=== PATIENT | female | born 1990 | race Asian ===

== ENCOUNTER 2022-12-08 05:16 | Inpatient (IN) | payer OTHER ==
[~2022-12-08 05:16] MED LIST: ceFAZolin 2 GM in Sodium Chloride 0.9% 50 ML IV ONE
[2022-12-08] MEDS: Lactated Ringers 1,000 ML IV SCH ×2 (05:40→07:13)
[2022-12-08] MEDS ORDERED: Metoclopramide 10 MG/2 ML SDV IVPUSH ONE ×2 (07:00)
[2022-12-08] MEDS ORDERED: Citric Acid/Sodium Citrate Solution 30 ML Cup PO ONE ×2 (07:00)
[2022-12-08] MEDS ORDERED: Bupivacaine 0.5% 30 ML SDV ONE (07:08)
[2022-12-08] MEDS ORDERED: Morphine PF 1 MG/ML Amp ONE (07:10)
[2022-12-08] MEDS ORDERED: Oxytocin 10 Units/1 ML SDV ONE ×2 (07:10→08:04)
[2022-12-08] MEDS ORDERED: Phenylephrine HCl In 0.9% NaCl 1 MG/10 ML Vial ONE (07:10)
[2022-12-08] MEDS ORDERED: Ondansetron 4 MG/2 ML SDV ONE (07:10)
[2022-12-08] MEDS ORDERED: Ondansetron 4 MG/2 ML SDV IVPUSH PRN (07:21)
[2022-12-08] MEDS ORDERED: diphenhydrAMINE 50 MG/ML SDV IVPUSH PRN ×2 (07:21→10:23)
[2022-12-08] MEDS ORDERED: Meperidine 50 MG/ML Vial IVPUSH PRN (07:21)
[2022-12-08] MEDS ORDERED: fentaNYL 100 MCG/2 ML SDV IVPUSH PRN (07:21)
[2022-12-08] MEDS ORDERED: Oxytocin/Lactated Ringers 10 UNIT/1,000 ML BAG IV SCH (08:00)
[2022-12-08] MEDS ORDERED: Ketorolac 30 MG/ML SDV ONE (08:18)
[2022-12-08] MEDS ORDERED: Naloxone 0.4 MG/ML SDV IVPUSH PRN (10:23)
[2022-12-08] MEDS ORDERED: Dextrose 5%-Lactated Ringers 1,000 ML IV SCH (10:23)
[2022-12-08] MEDS ORDERED: ePHEDrine 50 MG/ML SDV IVPUSH PRN (10:23)
[2022-12-08] MEDS: Ketorolac 30 MG/ML SDV IVPUSH SCH ×2 (14:14→20:07)
[2022-12-09] MEDS: Ketorolac 30 MG/ML SDV IVPUSH SCH (01:53)
[2022-12-09] MEDS: Acetaminophen/oxyCODONE 325-5 MG Tab PO PRN ×4 (05:50→20:35)
[2022-12-09] MEDS: Ibuprofen 600 MG Tab PO PRN ×2 (10:04→19:42)
[2022-12-09] MEDS ORDERED: Simethicone 80 MG Tab.Chew PO PRN (10:09)
[2022-12-09] MEDS: Docusate Sodium 100 MG Cap PO SCH ×2 (17:49→20:35)
[2022-12-10] MEDS: Acetaminophen/oxyCODONE 325-5 MG Tab PO PRN ×2 (01:09→09:10)
[2022-12-10] MEDS: Ibuprofen 600 MG Tab PO PRN ×2 (06:37→12:15)
[2022-12-10] MEDS: Docusate Sodium 100 MG Cap PO SCH (09:10)
== END 2022-12-10 13:30 | disposition home or self-care (01) | DRG 788 ==
LOC: JD.OB 05:16
PROVIDERS: ADMIT Obstetrics & Gynecology; ATTEND Obstetrics & Gynecology
PROC: 10D00Z1 Extraction of Products of Conception, Low, Open Approach (ICD-10-PCS; principal; 2022-12-08)
DX: O34.211 Maternal care for low transverse scar from previous cesarean delivery (principal); Z37.0 Single live birth; Z3A.39 39 weeks gestation of pregnancy; Z87.891 Personal history of nicotine dependence
CPT/HCPCS: 01961; 36415; 59025; 85025; 86592; 86850; 86900; 86901; 94762; A9270-GY; J1885; J2274; J2405; J2590; J2765; J3490; J7120; J7121